=== PATIENT | male | born 1995 | race Two or more races ===

== ENCOUNTER 2020-11-24 17:29 | Emergency (ER) | payer SELFPAY ==
[~2020-11-24] VITALS: Ht 175.3 cm; Wt 93.1 kg
[2020-11-24] MEDS ORDERED: ONDANSETRON PF 4 MG/2 ML VIAL. IVP ONE (18:15)
[2020-11-24] MEDS ORDERED: FAMOTIDINE 20 MG/2 ML VIAL IVP ONE (18:15)
[2020-11-24] MEDS ORDERED: fentaNYL PF VIAL 100 MCG/2 ML VIAL IVP ONE (18:15)
[2020-11-24 18:28] LABS: BASO % 0 % (0-3); EOS # 0.1 x10^3/uL (0.0-0.7); EOS % 1 % (0-3); HEMATOCRIT 45.3 % (39.0-53.0); HEMOGLOBIN 15.6 g/dL (13.0-17.5); LYMPH # 1.6 x10^3/uL (1.0-4.8); LYMPH % 15 % (24-48); MEAN CORPUSCULAR HEMOGLOBIN 29 pg (25-35); MEAN CORPUSCULAR HGB CONC 34 g/dL (31-37); MEAN CORPUSCULAR VOLUME 84 fL (79-100); MONO # 0.4 x10^3/uL (0.0-1.1); MONO % 4 % (0-9); NEUT # 9.1 x10^3/uL (1.8-7.7); NEUT % 81 % (31-73); PLATELET COUNT 224 x10^3/uL (140-400); RED BLOOD COUNT 5.42 x10^6/uL (4.30-5.70); RED CELL DISTRIBUTION WIDTH 13.1 % (11.5-14.5); WHITE BLOOD COUNT 11.2 x10^3/uL (4.0-11.0)
[2020-11-24 18:36] LABS: BILIRUBIN,URINE SMALL (NEG); CLARITY,URINE CLEAR; COLOR,URINE AMBER; NITRITE,URINE NEGATIVE (NEG); PH,URINE 5.5 (<5.0-8.0); PROTEIN,URINE 30 mg/dL (NEG-TRACE)
[2020-11-24 18:40] LABS: CALCIUM 8.9 mg/dL (8.5-10.1); CREATININE 1.3 mg/dL (0.7-1.3); GFR 66.7
--- NOTE | 2020-11-24 18:40 | PHYS DOC ---
Past Medical History Past Medical History: No Pertinent History (CRYSTAL CRUZ Pinky TECHNICAL PUBLICATIONS MANAGER) Past Surgical History: No Surgical History (DARINCRYSTAL Mayorga TECHNICAL PUBLICATIONS MANAGER) Smoking Status: Never Smoker Alcohol Use: Rarely (CRYSTAL CRUZ Pinky TECHNICAL PUBLICATIONS MANAGER) General Adult EDM: Chief Complaint: ABDOMINAL PAIN HPI: HPI: Patient is a 25 year old male with no significant medical history who presents to the ED today complaining of 10 out of 10 epigastric abdominal pain with nausea and vomiting, symptoms have been going on for 2 weeks. Patient denies any fever, denies any hematemesis or melena. Denies any diarrhea. He states he has been seen at [facility] twice with the same symptoms but they could not find anything wrong with him, he states they did 2 CAT scans which were negative. He states they did not do anything for him (CRYSTAL CRUZ Pinky TECHNICAL PUBLICATIONS MANAGER) Review of Systems: Review of Systems: Constitutional: Denies fever or chills. [] Eyes: Denies change in visual acuity. [] HENT: Denies nasal congestion or sore throat. [] Respiratory: Denies cough or shortness of breath. [] Cardiovascular: Denies chest pain or edema. [] GI: Reports epigastric abdominal pain with nausea and vomiting, denies bloody stools or diarrhea. [] : Denies dysuria. [] Musculoskeletal: Denies back pain or joint pain. [] Integument: Denies rash. [] Neurologic: Denies headache, focal weakness or sensory changes. [] Psychiatric: Denies depression or anxiety. [] (CRYSTAL CRUZ TECHNICAL PUBLICATIONS MANAGER) Heart Score: C/O Chest Pain: N/A Risk Factors: Risk Factors: DM, Current or recent (<one month) smoker, HTN, HLP, family history of CAD, obesity. Risk Scores: Score 0 - 3: 2.5% MACE over next 6 weeks - Discharge Home Score 4 - 6: 20.3% MACE over next 6 weeks - Admit for Clinical Observation Score 7 - 10: 72.7% MACE over next 6 weeks - Early Invasive Strategies (CRYSTAL CRUZ TECHNICAL PUBLICATIONS MANAGER) C/O Chest Pain: N/A (REYNALDO NOLASCO DO) Current Medications: Current Medications Medications (Trade) Dose Ordered Sig/Andrew Start Time Stop Time Status Last Admin Dose Admin Famotidine (Pepcid Vial) 20 mg 1X ONCE 11/24/20 18:15 11/24/20 18:16 DC 11/24/20 18:24 20 MG Fentanyl Citrate (Fentanyl 2ml Vial) 50 mcg 1X ONCE 11/24/20 18:15 11/24/20 18:16 DC 11/24/20 18:27 50 MCG Ondansetron HCl (Zofran) 4 mg 1X ONCE 11/24/20 18:15 11/24/20 18:16 DC 11/24/20 18:24 4 MG (MUTUNGA,CRYSTAL M TECHNICAL PUBLICATIONS MANAGER) Allergies: Allergies: Allergies Coded Allergies Type Severity Reaction Last Updated Verified No Known Drug Allergies 11/24/20 No (MUTUNGA,CRYSTAL M TECHNICAL PUBLICATIONS MANAGER) Physical Exam: PE: Constitutional: Well developed, well nourished, no acute distress, non-toxic appearance. [] HENT: Normocephalic, atraumatic, bilateral external ears normal, oropharynx moist, no oral exudates, nose normal. [] Eyes: PERRLA, EOMI, conjunctiva normal, no discharge. [] Neck: Normal range of motion, no tenderness, supple, no stridor. [] Cardiovascular:Heart rate regular rhythm, no murmur [] Lungs & Thorax: Bilateral breath sounds clear to auscultation [] Abdomen: Bowel sounds normal, soft, moderate epigastric and RUQ tenderness on exam, with negative Church sign, no right lower quadrant tenderness no masses, n o pulsatile masses. [] Skin: Warm, dry, no erythema, no rash. [] Back: No tenderness, no CVA tenderness. [] Extremities: No tenderness, no cyanosis, no clubbing, ROM intact, no edema. [] Neurologic: Alert and oriented X 3, normal motor function, normal sensory function, no focal deficits noted. [] Psychologic: Thrashing around in bed (MUTUNGA,CRYSTAL M TECHNICAL PUBLICATIONS MANAGER) Current Patient Data: Labs: Laboratory Tests Test 11/24/20 18:15 White Blood Count 11.2 x10^3/uL (4.0-11.0) H Red Blood Count 5.42 x10^6/uL (4.30-5.70) Hemoglobin 15.6 g/dL (13.0-17.5) Hematocrit 45.3 % (39.0-53.0) Mean Corpuscular Volume 84 fL (79-100) Mean Corpuscular Hemoglobin 29 pg (25-35) Mean Corpuscular Hemoglobin Concent 34 g/dL (31-37) Red Cell Distribution Width 13.1 % (11.5-14.5) Platelet Count 224 x10^3/uL (140-400) Neutrophils (%) (Auto) 81 % (31-73) H Lymphocytes (%) (Auto) 15 % (24-48) L Monocytes (%) (Auto) 4 % (0-9) Eosinophils (%) (Auto) 1 % (0-3) Basophils (%) (Auto) 0 % (0-3) Neutrophils # (Auto) 9.1 x10^3/uL (1.8-7.7) H Lymphocytes # (Auto) 1.6 x10^3/uL (1.0-4.8) Monocytes # (Auto) 0.4 x10^3/uL (0.0-1.1) Eosinophils # (Auto) 0.1 x10^3/uL (0.0-0.7) Basophils # (Auto) 0.0 x10^3/uL (0.0-0.2) Laboratory Tests 11/24/20 18:15 Vital Signs: Vital Signs Date Time Temp Pulse Resp B/P (MAP) Pulse Ox O2 Delivery O2 Flow Rate FiO2 11/24/20 17:54 98.2 78 18 140/75 (96) 96 Room Air 98.2 (CRYSTAL CRUZ APRN) EKG: EKG: [] (CRYSTAL CRUZ APRN) Radiology/Procedures: Radiology/Procedures: [] (CRYSTAL CRUZ APRN) Course & Med Decision Making: Course & Med Decision Making Pertinent Labs and Imaging studies reviewed. (See chart for details) This is a 25-year-old male patient presented to the ED today with epigastric abdominal pain, symptoms for 2 weeks. Patient reports he has been seen at [facility] twice and had 2 CAT scans of the abdomen and pelvis which she states were negative. CT of the abdomen and pelvic done at [facility] 11/06/2020 was noted for focal ileus otherwise no acute findings CT of the abdomen and pelvic done at [facility] on November 12, 2020 was noted for small amount of scarring in the lingula otherwise negative CBC with a WBC of 11.2, CMP with glucose of 178, AST of 340, ALT of 365, bilirubin 1.2. ALK is normal. 2300 pending RUQ ultrasound. Care tx to Dr. Nolasco (CRYSTAL CRUZ APRN) Course & Med Decision Making Patients Care and treatment plan provided by ER Nurse Practitioner. I was available for consult. Patient's chart reviewed. Assumed care at shift change disposition pending radiologic imaging. Results reviewed and discussed with patient. Patient's ultrasound within normal limits. Patient noted to have elevated liver enzyme--which he is aware of. Patient referred to GI and general surgery. Patient prescribed Ultram. Patient to follow-up. (REYNALDO NOLASCO DO) Dragon Disclaimer: Stephon Disclaimer: This electronic medical record was generated, in whole or in part, using a voice recognition dictation system. (CRYSTAL CRUZ APRN) Departure Departure Impression: Primary Impression: Epigastric pain Additional Impression: Elevated liver enzymes Disposition: HOME / SELF CARE / HOMELESS Condition: STABLE Referrals: NO PCP (PCP) Patient Instructions: Abdominal Pain Scripts Tramadol Hcl (ULTRAM) 50 Mg Tablet 1 TAB PO PRN Q6HRS PRN for pain MDD 4 Tablet(s) for 7 Days, #20 TAB 0 Refills Prov: REYNALDO NOLASCO DO 11/25/20 CRYSTAL CRUZ APRN Nov 24, 2020 18:40 REYNALDO NOLASCO DO Nov 25, 2020 00:34
[2020-11-24 18:44] LABS: ALBUMIN 4.5 g/dL (3.4-5.0); ALBUMIN/GLOBULIN RATIO 1.3 (1.0-1.7); TOTAL BILIRUBIN 1.2 mg/dL (0.2-1.0); TOTAL PROTEIN 8.1 g/dL (6.4-8.2)
[2020-11-24 18:45] LABS: AMPHETAMINE/METHAMPHETAMINE NEG (NEG); BARBITURATES NEG (NEG); BENZODIAZEPINES NEG (NEG); CANNABINOIDS POS (NEG); COCAINE NEG (NEG); METHADONE NEG (NEG); OPIATES POS (NEG); PHENCYCLIDINE NEG (NEG)
[2020-11-24 18:48] LABS: AMORPHOUS SEDIMENT,UR PRESENT /HPF; BACTERIA,URINE 0 /HPF (0-FEW); RBC,URINE 0 /HPF (0-2); WBC,URINE OCC /HPF (0-4)
--- NOTE | 2020-11-24 23:53 | RAD ---
Ultrasound of the right upper quadrant of the abdomen 11/24/2020 CLINICAL HISTORY: Right upper quadrant abdominal pain. Elevated liver function tests. TECHNIQUE: A real-time ultrasound examination of the right upper quadrant abdomen was performed. Mult iple images were obtained. FINDINGS: The gallbladder is well-distended. No gallstones are visualized. The gallbladder wall thick ness is within normal limits. No pericholecystic fluid is seen. The common bile duct measures 3 mm in diameter which is within normal limits. The liver is normal in size measuring 16.4 cm in length. Increased echogenicity of the liver parenchy ma is seen consistent with fatty infiltration. The pancreas is not well-visualized due to overlying b owel gas. The right kidney is within normal limits. No free fluid is seen. IMPRESSION: Fatty infiltration of the liver. Otherwise negative study. Electronically signed by: Thom Flores MD (11/24/2020 11:51 PM) [id number]
[2020-11-25 00:14] VITALS: BP 103/63
[2020-11-25] MEDS ORDERED: TRAM-48 PO (01:27)
== END 2020-11-25 01:36 | disposition home or self-care (01) ==
LOC: ER 17:29
DX: R10.13 Epigastric pain (principal); R74.8 Abnormal levels of other serum enzymes; R11.2 Nausea with vomiting, unspecified
CPT/HCPCS: 36415; 76705; 80053; 80307; 81001; 83690; 85025; 96374; 96375; 99285; G0480; J2405; J3010; J3490